=== PATIENT | male | born 1945 | race Caucasian/White ===

== ENCOUNTER 2018-10-24 11:42 | Inpatient (IN) | payer MEDICARE, BC ==
[~2018-10-24] VITALS: Ht 180.3 cm; Wt 107.0 kg
[~2018-10-24 11:42] MED LIST: ALPHAGAN 10 ML10 ML OP; ASPIRIN 32325 MG/TAB PO; BYSTOLIC5 MG PO; CENTRUM SILVER1 TA1 PO; CRESTOR40 MG PO; DIPHEN25 MG PO; FAMOTIDINE20 MG PO; HUMULIN 70/3100 U/ML SQ; ISOSORBIDE30 MG PO; LANTUS100 U/ML SQ; METFORMIN500 MG PO; METOPROLOL25 MG PO; NITROSTAT0.4 MG/TAB SL; PLAVIX 75MG TAB75 MG PO; VITAMIN D1000 IU PO; VITAMIN D50000 I1 PO
[2018-12-02] VITALS (9 sets, daily range): BP systolic 115–184; BP diastolic 36–64; PULSE 50–60; TEMP 97.2–98.1
[2018-12-02] MEDS ORDERED: NOVOLOGMIX70/30 SQ (07:01)
[2018-12-02] MEDS ORDERED: LOMOTIL 0.025 M1 TAB (07:03)
[2018-12-02] MEDS ORDERED: PLAVIX 75MG TAB75 MG PO (07:04)
[2018-12-02] MEDS ORDERED: BYSTOLIC20 MG PO (07:04)
[2018-12-02] MEDS ORDERED: COZAAR100 MG PO (07:05)
[2018-12-02] MEDS ORDERED: PROTONIX 40MG T40 MG PO (07:05)
[2018-12-02] MEDS ORDERED: CRESTOR20 MG PO (07:06)
[2018-12-02] MEDS ORDERED: IMDUR 60MG60 MG/TAB PO (07:07)
[2018-12-02] MEDS ORDERED: JARDIANCE25 PO (07:07)
--- NOTE | 2018-12-02 11:23 | NUR ---
First visit from the enterprise sales executive. No needs right now.
--- NOTE | 2018-12-02 14:03 | NUR ---
PATIENT TO ROOM 330 PER BED WITH REPORT FROM MONY CRAWFORD PACU @1326. PT IS DROWSEY BY AWAKENS TO VERBAL. LUNGS CLEAR. BOWEL SOUNDS PRESENT. IV TO RH PER PUMP, SCDS TEDS BILATERALLY, POLAR PACK OVER AQUACEL TO LEFT KNEE. FAMILY AT BEDSIDE.
--- NOTE | 2018-12-02 14:57 | NUR ---
CHINO and SW student met with patient to discuss discharge planning. Patient lives in [place] with his Sonia. His PCP is Dr Ramandeep Hawk and he obtains his medications from [facility]. Patient would like to DC to [facility], Choice form obtained and placed in chart. SW faxed clinical information and informed Lilia of referral. CHINO will continue to follow to assist in DC planning.
--- NOTE | 2018-12-02 15:06 | NUR ---
DR. LUCIA IN TO ROUND ON PATIENT, SEE NEW ORDERS.
--- NOTE | 2018-12-02 20:30 | NUR ---
Assessment completed. Patient is A&O x 4. VSS. Started prn Oxycodone for pain control. Aquacell dressing to left knee is CDI with cryocuff maintained to knee. Pedal pulses intact. BLE lindsey hose/scds on. Encouraged ankle pumps. Tolerating diet with no c/o nausea. Adame catheter to DD with yellow clear urine draining. IVF infusing with intermittent antibiotic per orders. Ambulated approximately 150 feet in the hallway this evening with assist x 1 with walker and gait belt. Denies any concerns or needs at this time. Bed is in a low position with call light in reach.
--- NOTE | 2018-12-02 21:15 | NUR ---
LOREN Noble, Hospitalist consulted for diabetic management per orders. Evening blood sugar is 220, see emar for new orders.
--- NOTE | 2018-12-03 00:15 | NUR ---
Patient awakened during nursing care, denies any pain at this time. Patient requested to get up early this morning and ambulate and sit in the chair. Denies any concerns or needs at this time. Bed remains in a low position with call light in reach.
[2018-12-03 00:59] VITALS: BP 127/46; PULSE 55; TEMP 97.7
[2018-12-03 05:00] VITALS: BP 157/47; PULSE 54; PULSE 549; TEMP 97.8
--- NOTE | 2018-12-03 06:09 | NUR ---
Patient has rested well through the night. Pain has been controlled with 1 tablet of oral pain medication alternating between [place] and Vicky. Aquacell dressing to left knee remains CDI with cryocuff maintained to knee. Adame catheter remains to DD with yellow clear urine draining. IV to INT with good PO intake. Denies any concerns or needs at this time, call light is within reach.
[2018-12-03 06:20] LABS: HEMATOCRIT 40.6 % (42.0-52.0); HEMOGLOBIN 13.5 g/dl (13.5-18.0)
[2018-12-03 06:58] LABS: BASO % 0.2 % (0.0-2.0); EOS % 0.1 % (0-4.0); GRAN # 9.1 (1.4-6.5); GRAN % 85.9 % (42.2-75.2); HEMATOCRIT 40.9 % (42.0-52.0); HEMOGLOBIN 13.6 g/dl (13.5-18.0); LYMPH # 0.7 (1.2-3.4); LYMPH % 6.8 % (20.0-51.0); MEAN CELL VOLUME 89 fl (80.0-100.0); MEAN CORPUSCULAR HEMOGLOBIN 30 pg (27.0-31.0); MEAN CORPUSCULAR HGB CONC 33 g/dl (33.0-37.0); MEAN PLATELET VOLUME 9.4 fl (7.4-10.4); MONO # 0.7 (0.1-0.6); MONO % 6.5 % (1.7-9.3); PLATELET COUNT 175 K/mm3 (130-400); RED BLOOD COUNT 4.58 M/mm3 (4.20-5.60); REDCELL DISTRIBUTION WIDTH-CV 13.4 % (11.5-14.5)
--- NOTE | 2018-12-03 07:06 | NUR ---
REPORT SO CUELLAR RN.
[2018-12-03 07:12] LABS: ALBUMIN 3.2 gm/dL (3.5-5.0); BILIRUBIN,TOTAL 0.4 mg/dL (0.0-1.0); CALCIUM 8.2 mg/dL (8.4-10.2); CREATININE, serum 0.89 mg/dL (0.66-1.25); POTASSIUM 4.5 mmol/L (3.4-5.0); TOTAL PROTEIN 5.8 gm/dL (6.4-8.2)
[2018-12-03 07:58] VITALS: BP 136/46; PULSE 54; TEMP 98.2
--- NOTE | 2018-12-03 09:05 | NUR ---
PT OUT TO WARNER WITH THRERAPY AMBULATED WELL, 100 +FEET WITH STEADY GAIT.
--- NOTE | 2018-12-03 10:10 | NUR ---
GEORGE CATHETER DISCONTINUED PER ORDERS TIP INTACT PT TOLERATED WELL.
--- NOTE | 2018-12-03 11:09 | NUR ---
CHINO [facility].
[2018-12-03 11:30] VITALS: BP 122/42; PULSE 42; TEMP 98
--- NOTE | 2018-12-03 13:11 | NUR ---
Initial visit; Patient thanked Immigration Lawyer for looking in on him and offering God's blessings.
[2018-12-03 15:43] VITALS: BP 125/48; PULSE 45; TEMP 97.8
--- NOTE | 2018-12-03 19:46 | NUR ---
Assessment completed. Patient is A&O x 4. VSS. Pain controlled at this time with current oral regimen. Aquacell dressing to left knee is CDI with cryocuff maintained to knee. Pedal pulses intact. BLE lindsey hose/scds on. Encouraged ankle pumps while laying in bed. Tolerating diet with no c/o nausea. Voiding wiht no difficulities. INT to right hand. Ambulating with standby assist with walker, gait is steady. Ambulatd approximately 250 feet in the hallway this evening with staff. Denies any concerns or needs at this time, call light is within reach.
[2018-12-03 20:06] VITALS: BP 128/47; PULSE 57; TEMP 98.7
--- NOTE | 2018-12-03 23:16 | NUR ---
Patient has been resting well in bed, denies any pain at this time. Cryocuff maintained to left knee. Denies any concerns or needs at this time, call light remains within reach.
[2018-12-04 00:14] VITALS: BP 154/58; PULSE 55; TEMP 98.4
--- NOTE | 2018-12-04 04:29 | NUR ---
Patient has rested well through the night. VSS. Reports minimal pain to left knee, denies needing any pain medication. Aquacell dressing to left knee remains CDI with cryocuff maintained. Up with standby assist with walker, gait continues to be steady. Denies any concerns or needs at this time, call light is within reach.
[2018-12-04 04:34] VITALS: BP 137/57; PULSE 55; TEMP 98.1
[2018-12-04 08:47] LABS: INR 1.1 (0.8-3.0); PROTHROMBIN TIME 12.2 SECONDS (9.7-12.8)
[2018-12-04] MEDS ORDERED: ASPI325T6 PO (09:19)
[2018-12-04] MEDS ORDERED: NORCO 325 MG-7.1 TAB PO (09:19)
[2018-12-04] MEDS ORDERED: ROXICODONE 55 MG/TAB PO (09:20)
[2018-12-04] MEDS ORDERED: TYLENOL 500MG500 MG PO (09:20)
[2018-12-04 11:13] VITALS: BP 125/80; PULSE 43; TEMP 97.3
--- NOTE | 2018-12-04 15:03 | NUR ---
CHINO faxed update [facility].
--- NOTE | 2018-12-04 15:33 | NUR ---
CHINO spoke with Lilia at [facility] after sending clinical information. She said they can still accept patient however she doesnt see him being there more than the weekend. Patient would still like to go there for skilled if possible. Will follow up in the AM.
[2018-12-04 16:03] VITALS: BP 169/57; PULSE 54; TEMP 98.2
--- NOTE | 2018-12-04 20:00 | NUR ---
Patient in bed resting. Family at bedside. Alert and oriented x 3. Shift assessment complete. States mild relief of pain from medications. Aquacell to left knee with scant drainage present. Tyler hose and SCDs to BLE. Cryocuff to left knee. Ambulated >150 feet. Stand by assist with walker and gait belt. Steady gait. Denies further needs at this time.
[2018-12-04 20:06] VITALS: BP 157/58; PULSE 60; TEMP 98.6
[2018-12-05 00:02] VITALS: BP 161/51; PULSE 57; TEMP 98
[2018-12-05 04:46] VITALS: BP 155/64; PULSE 76; TEMP 98.3
--- NOTE | 2018-12-05 06:45 | NUR ---
awake sitting up on side of bed, bedside shift report received from TY Brown
[2018-12-05 06:47] LABS: INR 1.1 (0.8-3.0); PROTHROMBIN TIME 12.5 SECONDS (9.7-12.8)
--- NOTE | 2018-12-05 07:40 | NUR ---
sitting up in bed after having had breakfast, full assessment completed, see interventions for further info, c/o pain to left knee and medicated with hydrocodone 7 .5mg 2 tabs
[2018-12-05 08:10] VITALS: BP 163/46; PULSE 57; TEMP 97.9
--- NOTE | 2018-12-05 09:15 | NUR ---
ambulated out to tran with therapy for group exercises
--- NOTE | 2018-12-05 09:35 | NUR ---
SW met with patient and to present IM and verbally discuss the contents. Patient was agreeable and signed the form. Patient denied a copy and placed the original in the chart. CHINO contacted Lilia at [facility] [place] and set up transport for 11am. CHINO informed patient. Discharge orders faxed. Patient dc to [facility] [place], 12/05/18, via wheel chair van.
--- NOTE | 2018-12-05 10:30 | NUR ---
Dr Dash and care team in to see patient
[2018-12-05 11:00] VITALS: BP 163/46; PULSE 57; TEMP 97.9
--- NOTE | 2018-12-05 11:20 | NUR ---
Phoebe here for transfer, assisted into and discharged
== END 2018-12-05 11:20 | DRG 470 ==
LOC: JCC 12-02 06:28
PROVIDERS: Nurse Practitioner; Nurse Practitioner Family; ADMIT Orthopaedic Surgery
PROC: 0SRD0J9 Replacement of Left Knee Joint with Synthetic Substitute, Cemented, Open Approach (ICD-10-PCS; principal; 2018-12-02 10:15)
DX: M17.12 Unilateral primary osteoarthritis, left knee (principal); I50.32 Chronic diastolic (congestive) heart failure; E11.9 Type 2 diabetes mellitus without complications; Z95.1 Presence of aortocoronary bypass graft; I25.10 Atherosclerotic heart disease of native coronary artery without angina pectoris; I11.0 Hypertensive heart disease with heart failure; K58.0 Irritable bowel syndrome with diarrhea
CPT/HCPCS: 99222; 99231-AI; A4314; A9284; C1713; C1776; J0461; J0690; J1100; J1815; J2250; J2405; J2704; J3010; J3370; J7030

== ENCOUNTER → 2018-11-26 | Outpatient (CLI) | payer MEDICARE, BC ==
[2018-11-26 10:20] LABS: HIV 1/2 Antibodies Non-Reactive; HIV-1p24 Antigen Non-Reactive
== END ==
LOC: COL.LAB 08:17
PROVIDERS: Orthopaedic Surgery
DX: Z01.812 Encounter for preprocedural laboratory examination (principal); M17.12 Unilateral primary osteoarthritis, left knee

== ENCOUNTER 2019-10-20 12:00 | Emergency (ER) | payer MEDICARE, BC ==
[~2019-10-20] VITALS: Ht 180.3 cm; Wt 109.1 kg
[~2019-10-20 12:00] MED LIST changes: +ASPI325T6 PO; +BYSTOLIC20 MG PO; +COZAAR100 MG PO; +CRESTOR20 MG PO; +IMDUR 60MG60 MG/TAB PO; +JARDIANCE25 PO; +LOMOTIL 0.025 M1 TAB; +NORCO 325 MG-7.1 TAB PO; +NOVOLOGMIX70/30 SQ; +PROTONIX 40MG T40 MG PO; +ROXICODONE 55 MG/TAB PO; +TYLENOL 500MG500 MG PO
[2019-10-20 12:05] VITALS: BP 181/71; TEMP 97.6
[2019-10-20] MEDS ORDERED: LOMOTIL 0.025 M1 TAB PO (12:18)
[2019-10-20] MEDS ORDERED: PLAVIX 75MG TAB75 MG PO (12:19)
[2019-10-20] MEDS ORDERED: ALPHAG-P-0.1-10 (12:23)
[2019-10-20] MEDS ORDERED: COENZYME Q-10100 M1 PO (12:23)
[2019-10-20 13:37] VITALS: PULSE 68
== END 2019-10-20 13:40 | disposition home or self-care (01) ==
LOC: COL.ER 12:00
DX: S00.83XA Contusion of other part of head, initial encounter (principal); E11.9 Type 2 diabetes mellitus without complications; E78.00 Pure hypercholesterolemia, unspecified; I10 Essential (primary) hypertension; Z95.1 Presence of aortocoronary bypass graft; Z79.02 Long term (current) use of antithrombotics/antiplatelets; Z79.4 Long term (current) use of insulin; W01.198A Fall on same level from slipping, tripping and stumbling with subsequent striking against other object, initial encounter; Y92.009 Unspecified place in unspecified non-institutional (private) residence as the place of occurrence of the external cause

== ENCOUNTER → 2020-02-22 | Outpatient (CLI) | payer MEDICARE, BC ==
[~2020-02-22] MED LIST changes: +ALPHAG-P-0.1-10; +COENZYME Q-10100 M1 PO; +LOMOTIL 0.025 M1 TAB PO
== END ==
LOC: COL.RAD 07:51
DX: I12.9 Hypertensive chronic kidney disease with stage 1 through stage 4 chronic kidney disease, or unspecified chronic kidney disease (principal); N18.9 Chronic kidney disease, unspecified; I70.1 Atherosclerosis of renal artery; K55.1 Chronic vascular disorders of intestine
CPT/HCPCS: Q9967

== ENCOUNTER 2021-01-22 10:03 | Emergency (ER) | payer MEDICARE, BC ==
[~2021-01-22] VITALS: Ht 180.3 cm; Wt 94.5 kg
[2021-01-22 10:11] VITALS: TEMP 97.4
[2021-01-22 11:45] VITALS: BP 119/66; PULSE 52
== END 2021-01-22 11:45 | disposition home or self-care (01) ==
LOC: COL.ER 10:03
DX: S01.01XA Laceration without foreign body of scalp, initial encounter (principal); E11.9 Type 2 diabetes mellitus without complications; I10 Essential (primary) hypertension; Z79.4 Long term (current) use of insulin; Z88.1 Allergy status to other antibiotic agents; Z79.02 Long term (current) use of antithrombotics/antiplatelets; W01.198A Fall on same level from slipping, tripping and stumbling with subsequent striking against other object, initial encounter

== ENCOUNTER → 2021-09-09 | Outpatient (CLI) | payer MEDICARE, BC | LOC: COL.VAS 07:42 | DX: M79.89 Other specified soft tissue disorders (principal) ==

== ENCOUNTER → 2021-12-21 | Outpatient (CLI) | payer MEDICARE, BC | LOC: COL.RAD 12-19 09:45 | DX: D69.6 Thrombocytopenia, unspecified (principal) ==